=== PATIENT | female | born 1940 | race African-American/Black ===

== ENCOUNTER 2016-11-28 12:09 | Emergency (ER) | payer MEDICARE, BC ==
[~2016-11-28] VITALS: Ht 165.1 cm; Wt 52.0 kg
[2016-11-28] MEDS ORDERED: CLON0.2T (12:16)
[2016-11-28] MEDS ORDERED: PANT40TA4 (12:16)
[2016-11-28] MEDS ORDERED: METO50TA5 (12:16)
[2016-11-28] MEDS ORDERED: METO100T5 (12:16)
[2016-11-28] MEDS ORDERED: BUPR100T13 (12:16)
[2016-11-28] MEDS ORDERED: MYCO360T3 (12:16)
[2016-11-28] MEDS ORDERED: PRED5TAB (12:16)
[2016-11-28] MEDS ORDERED: TACR1CAP (12:16)
[2016-11-28] MEDS ORDERED: DOXA1TAB2 (12:16)
[2016-11-28] MEDS ORDERED: PRAV40TA58 (12:16)
[2016-11-28] MEDS ORDERED: ISOS30TA6 (12:16)
[2016-11-28] MEDS ORDERED: LISI-604 (12:16)
[2016-11-28 13:04] LABS: BASOPHILS % 0.6 % (0.0-2.0); EOSINOPHILS % 1.2 % (0.0-5.0); HEMOGLOBIN. 9.7 g/dL (12.0-16.0); LYMPHOCYTES % 14.7 % (20.0-50.0); MEAN CORPUSCULAR HEMOGLOBIN 27.2 pg (28.0-32.0); MEAN PLATELET VOLUME 9.9 fl (7.4-10.4); MONOCYTES % 8.1 % (2.0-8.0); NEUTROPHILS % 75.4 % (40.0-76.0); PLATELET 174 x1000/uL (130-400); RED BLOOD CELL COUNT 3.58 mill/uL (4.2-5.4); RED CELL DISTRIBUTION WIDTH 14.3 % (11.6-14.6)
[2016-11-28 13:19] LABS: CARBON DIOXIDE 28 mEq/L (21-32); CHLORIDE 104 mEq/L (98-107)
[2016-11-28 13:27] LABS: INR 1.1; PROTHROMBIN TIME 11.6 sec
[2016-11-28 16:28] VITALS: BP 175/74
== END 2016-11-28 16:32 | disposition home or self-care (01) ==
LOC: ER 12:34
DX: R13.10 Dysphagia, unspecified (principal); R49.0 Dysphonia; I10 Essential (primary) hypertension; Z87.891 Personal history of nicotine dependence; Z94.0 Kidney transplant status; Z88.0 Allergy status to penicillin
CPT/HCPCS: 36415; 70490; 80053; 85025; 85610; 99285

== ENCOUNTER → 2016-12-12 | Outpatient (CLI) | payer MEDICARE, BC ==
[~2016-12-12] MED LIST: BARIUM SULFATE(VOLUMEN) 450 ML ORAL.SUSP ONE; BUPR100T13; CLON0.2T; DOXA1TAB2; EZ-HD(BARIUM SULFATE 135ML BTL) PO ONE; ISOS30TA6; LISI-604; METO100T5; METO50TA5; MYCO360T3; PANT40TA4; PRAV40TA58; PRED5TAB; TACR1CAP
== END | disposition home or self-care (01) ==
LOC: RAD 08:49
PROVIDERS: ATTEND Internal Medicine Gastroenterology
DX: K22.4 Dyskinesia of esophagus (principal)
CPT/HCPCS: 74220

== ENCOUNTER 2017-01-19 12:35 | Emergency (ER) | payer MEDICARE, BC ==
[~2017-01-19] VITALS: Ht 167.6 cm; Wt 50.0 kg
[~2017-01-19 12:35] MED LIST changes: -BARIUM SULFATE(VOLUMEN) 450 ML ORAL.SUSP ONE; -EZ-HD(BARIUM SULFATE 135ML BTL) PO ONE
[2017-01-19] MEDS ORDERED: SODIUM CHLORIDE 0.9% 1,000 ML IV ONE (14:11)
[2017-01-19 14:38] LABS: HEMATOCRIT. 26.3 % (36.0-48.0); HEMOGLOBIN. 8.5 g/dL (12.0-16.0); MEAN CORPUSCULAR HEMOGLOBIN 27.4 pg (28.0-32.0); MEAN CORPUSCULAR VOLUME 84.2 fL (81.0-99.0); MEAN PLATELET VOLUME 9.8 fl (7.4-10.4); PLATELET 191 x1000/uL (130-400); RED BLOOD CELL COUNT 3.12 mill/uL (4.2-5.4); RED CELL DISTRIBUTION WIDTH 14.8 % (11.6-14.6)
[2017-01-19 14:43] LABS: INR 1.1
[2017-01-19 14:50] LABS: CARBON DIOXIDE 21 mEq/L (21-32); CHLORIDE 106 mEq/L (98-107)
[2017-01-19 15:03] LABS: PLATELET ESTIMATE NORMAL
[2017-01-19 15:39] LABS: CLARITY URINE CLOUDY (CLEAR); COLOR URINE YELLOW (YELLOW); GLUCOSE URINE NEGATIVE (NEGATIVE); KETONES URINE NEGATIVE (NEGATIVE); LEUKOCYTE ESTERASE URINE NEGATIVE (NEGATIVE); NITRITE URINE NEGATIVE (NEGATIVE); OCCULT BLOOD URINE TRACE (NEGATIVE); PROTEIN URINE 3+ (NEGATIVE); SPECIFIC GRAVITY URINE 1.015 (1.005-1.030); UROBILINOGEN URINE 0.2 E.U./dL (0.2-1.0)
[2017-01-19 15:49] LABS: *AMPHETAMINES SCREEN URINE NEGATIVE (NEGATIVE); *BARBITURATES SCREEN URINE NEGATIVE (NEGATIVE); *BENZODIAZEPINES SCREEN URINE NEGATIVE (NEGATIVE); *COCAINE SCREEN URINE NEGATIVE (NEGATIVE); CANNABINOID URINE SCREEN NEGATIVE (NEGATIVE); METHADONE URINE SCREEN NEGATIVE (NEGATIVE); OPIATES URINE SCREEN NEGATIVE (NEGATIVE); PHENCYCLIDINE URINE SCREEN NEGATIVE (NEGATIVE)
[2017-01-19 16:38] VITALS: BP 164/94
== END 2017-01-19 17:25 | disposition home or self-care (01) ==
LOC: ER 14:41
DX: R53.1 Weakness (principal); D64.9 Anemia, unspecified; I95.9 Hypotension, unspecified; Z88.0 Allergy status to penicillin; Z90.710 Acquired absence of both cervix and uterus; Z94.0 Kidney transplant status; Z98.51 Tubal ligation status
CPT/HCPCS: 36415; 80053; 80305; 81001; 85025; 85610; 99284; J7030

== ENCOUNTER → 2018-07-28 | Outpatient (CLI) | payer MEDICARE, BC ==
[~2018-07-28] MED LIST changes: +METO-539; +METO100T16; -METO100T5; -METO50TA5
== END | disposition home or self-care (01) ==
LOC: RAD 11:58
DX: I13.11 Hypertensive heart and chronic kidney disease without heart failure, with stage 5 chronic kidney disease, or end stage renal disease (principal); N18.6 End stage renal disease; Z94.0 Kidney transplant status
CPT/HCPCS: 71045